=== PATIENT | female | born 1980 | race African-American/Black ===

== ENCOUNTER 2022-05-08 17:07 | Inpatient (IN) | payer OTHER ==
[~2022-05-08] VITALS: Ht 162.6 cm; Wt 83.9 kg
--- NOTE | 2022-05-08 17:32 | NUR ---
Pt arrived with c/o excessive than normal vaginal bleeding, blood clots, low abdominal and low back pain present, rated 5-6/10, characterized as aching/cramping, started since Tuesday (05-05-22). Pt stated that she has hx of Anemia and HTN but does not medicate HTN. Seen by Dr. Barrios for MSE.
[2022-05-08 17:42] LABS: *BILIRUBIN,URIN NEGATIVE (NEGATIVE); *BLOOD, URINE 2+ (NEGATIVE); *CLARITY,URINE CLEAR (CLEAR); *COLOR,URINE YELLOW (YELLOW); *KETONES,URINE NEGATIVE (NEGATIVE); *UROBILINOGEN,URINE 0.2 E.U./dl (NORMAL); LEUKOCYTE ESTERASE ,URINE NEGATIVE (NEGATIVE); NITRITE, URINE NEGATIVE (NEGATIVE); UGLUCOSE NEGATIVE (NEGATIVE)
[2022-05-08 17:49] LABS: *URINE HCG, QUAL NEG (NEGATIVE)
[2022-05-08 18:04] LABS: MEAN CORPUSCULAR HEMOGLOBIN 22.6 uug (24.7-32.8); MEAN CORPUSCULAR VOLUME 70.7 fL (75.5-95.3); PLATELET COUNT (AUTO) 355 K/uL (179-408)
[2022-05-08 18:17] LABS: HEMATOCRIT 20.9 % (31.2-41.9)
--- NOTE | 2022-05-08 18:20 | NUR ---
Received lab report: Hgb = 6.7 and Hct = 20.9 MD made aware.
[2022-05-08 18:23] LABS: CREATININE 0.8 mg/dL (0.6-1.3)
--- NOTE | 2022-05-08 18:25 | NUR ---
Contacted Dr. Lina Turcios (phone #[phone]) - Gyne per 's request.
[2022-05-08] MEDS ORDERED: medroxyPROGESTERone ACET 5 MG TABLET PO SCH (18:30)
[2022-05-08 18:31] LABS: POTASSIUM 2.8 mmol/L (3.5-5.1)
--- NOTE | 2022-05-08 18:34 | NUR ---
Lab called and stated that blood product/s will arrive at 2200. made aware.
[2022-05-08] MEDS ORDERED: POTASSIUM BICARBONATE/CIT AC 25 MEQ TABLET.EFF ONE (18:45)
[2022-05-08] MEDS ORDERED: POTASSIUM BICARBONATE/CIT AC 25 MEQ TABLET.EFF PO ONE (18:45)
[2022-05-08] MEDS ORDERED: CHOLECALCIFEROL 1,000 UNIT TABLET ONE (18:45)
[2022-05-08] MEDS: CHOLECALCIFEROL 1,000 UNIT TABLET PO SCH (18:47)
--- NOTE | 2022-05-08 19:00 | NUR ---
Blood Transfusion consent form signed.
--- NOTE | 2022-05-08 19:10 | NUR ---
Pt will be admitted under the medical care of Dr. Card, level of care = telemetry, admission dx of vaginal bleeding and anemia. Room number to follow.
--- NOTE | 2022-05-08 19:13 | NUR ---
Endorsed to Radhika Morse RN.
--- NOTE | 2022-05-08 19:33 | NUR ---
Note [email or web address] in EDM - 05/08/22 at 1939 by CUONG Patient sitting up in bed with family member at bedside, updated on plan of care at this time. patient made aware she will be admitted to the hospital, awaiting room assignment and will be getting a blood transfussion when blood becomes available. Patient remains a/o x4, no s/s of any distress noted, denies any pain or discomfort at this time. #20g established in right wrist area, placed on monitor and will continue to monitor, side rail up.
--- NOTE | 2022-05-08 19:39 | NUR ---
Patient sitting up in bed with family member at bedside, updated on plan of care at this time. patient made aware she will be admitted to the hospital, awaiting room assignment and will be getting a blood transfusion when blood becomes available. Patient remains a/o x4, no s/s of any distress noted, denies any pain or discomfort at this time. #20g established in right wrist area, placed on monitor and will continue to monitor, side rail up.
[2022-05-08] MEDS ORDERED: MAGNESIUM SULFATE/D5W 100 ML IV SCH (19:45)
[2022-05-08 19:53] LABS: BACTERIA,URINE NONE SEEN /HPF (NONE SEEN); RBC,URINE 20-50 /HPF (0-3); SQUAMOUS EPITHELIAL CELL,UR FEW /HPF (NONE SEEN); WBC,URINE NONE SEEN /HPF (0-3)
--- NOTE | 2022-05-08 19:58 | NUR ---
ER MD at bedside talking with patient.
[2022-05-08] MEDS ORDERED: MAGNESIUM SULFATE/D5W 100 ML ONE (20:01)
[2022-05-08] MEDS ORDERED: MAGNESIUM SULFATE/D5W 200 ML ONE (20:07)
[2022-05-08 20:28] LABS: EOSINOPHILS % (MANUAL) 3 % (0-8); LYMPHOCYTES % (MANUAL) 23 % (20-40); MONOCYTES % (MANUAL) 7 % (2-10); NEUTROPHILS % (MANUAL) 67 % (42-75)
[2022-05-08] MEDS ORDERED: ONDANSETRON 4 MG/2 ML VIAL IV PRN (21:15)
[2022-05-08] MEDS ORDERED: HYDROCODONE/APAP 5-325MG TABLET PO PRN (21:15)
[2022-05-08] MEDS ORDERED: METOPROLOL TARTRATE 50 MG TABLET PO SCH (21:15)
--- NOTE | 2022-05-08 22:44 | NUR ---
Resting in bed family member remains at bedside, patient continues to await transfer to room. IVF infusing as per order.
--- NOTE | 2022-05-09 00:08 | NUR ---
blood infusing as per order, no s/s of reaction noted at this time, patient resting remains easy to arouse, will continue to monitor.
--- NOTE | 2022-05-09 00:28 | NUR ---
report was given to Ehsan, patient remains stable for transport.
--- NOTE | 2022-05-09 01:05 | NUR ---
Resting in bed, blood infusing well, no voiced c/o at this time.
--- NOTE | 2022-05-09 01:40 | NUR ---
Admitted patient in med surg floor under the care of Dr russo, patient alert oriented, complain of headaches, will medicate as ordered. Ambulatory continent of bladder, oriented to the room and call lights, cont to monitor.
[2022-05-09 02:00] VITALS: BP 158/84
[2022-05-09] MEDS: ACETAMINOPHEN 325 MG TABLET PO PRN ×2 (02:28→21:34)
--- NOTE | 2022-05-09 02:28 | NUR ---
Patient complain of headaches, request tylenol for headaches, noted with slightly elevated bp will rechek again, cont to monitor.
[2022-05-09 04:00] VITALS: BP 141/73
[2022-05-09 06:28] LABS: HEMATOCRIT 24.2 % (31.2-41.9); MEAN CORPUSCULAR HEMOGLOBIN 23.5 uug (24.7-32.8); PLATELET COUNT (AUTO) 311 K/uL (179-408)
[2022-05-09 06:30] VITALS: BP 141/75
--- NOTE | 2022-05-09 06:36 | NUR ---
Patient asleep but arousable, no further complain of headaches, no further vaginal bleeding noted, BP wnl now, cont to monitor.
[2022-05-09 06:51] LABS: BILIRUBIN,TOTAL 0.1 mg/dL (0.2-1.0); CREATININE 0.7 mg/dL (0.6-1.3); PHOSPHOROUS 3.1 mg/dL (2.5-4.9); THYROID STIMULATING HORMONE 4.144 mIU/mL (0.358-3.740); TOTAL PROTEIN, SERUM 5.8 g/dL (6.4-8.2)
[2022-05-09] MEDS: PANTOPRAZOLE SODIUM 40 MG TABLET.DR PO SCH (06:51)
[2022-05-09 06:54] LABS: POTASSIUM 2.8 mmol/L (3.5-5.1)
[2022-05-09] MEDS: medroxyPROGESTERone ACET 5 MG TABLET PO SCH (08:50)
[2022-05-09] MEDS: CHOLECALCIFEROL 1,000 UNIT TABLET PO SCH (08:50)
[2022-05-09] MEDS: METOPROLOL TARTRATE 25 MG TABLET PO SCH ×2 (08:52→21:34)
[2022-05-09 11:35] VITALS: BP 148/86
[2022-05-09] MEDS ORDERED: POTASSIUM CHLORIDE 50 ML IV SCH (14:00)
--- NOTE | 2022-05-09 14:00 | NUR ---
POTASSIUM IN PROGRESS ORDERED AND AT ABOUT [address] WAY PATIENT C/O HAVING TOO MUCH PAIN AND IS UNABLE TO CONTINUE WITH THE REST OF THE INFUSSION SO POTASSIUM STOPPED AND PHARMACY NOTIFIED AND PER MORGAN WILL ADD LIDOCAINE INTO THE MIX TO PREVENT THE PAIN.
[2022-05-09] MEDS ORDERED: POTASSIUM CHLORIDE 10 MEQ, LIDOCAINE-MPF 1% 1 ML in IV DEXTROSE 5% 100 ML IV SCH (15:00)
[2022-05-09] MEDS: POTASSIUM CHLORIDE 10 MEQ, LIDOCAINE 1% 1 ML in IV DEXTROSE 5% 100 ML IV SCH ×4 (16:33→23:38)
[2022-05-09 16:49] VITALS: BP 163/85
--- NOTE | 2022-05-09 17:30 | NUR ---
SO FAR PATIENT HAS RECEIVED 2 BAGS OF THE POTASSIUM AND ATTEMPTING TO CONTINUE TO INFUSSION BUT PATIENT STATED WILL PREFER TO TAKE A BREAK BEFORE CONTINUING WILL WAIT FOR WHEN SHE IS READY.WILL CONTINUE TO OBSERVE.
[2022-05-09 20:00] VITALS: BP 135/72
--- NOTE | 2022-05-09 21:36 | NUR ---
Patient was educated and agreed to continue rest of Potassium bags ordered at this time. Provided non-pharmacological interventions for prevention of pain. Is in no distress. Safety and comfort measures continue to be enforced.
[2022-05-10] MEDS: POTASSIUM CHLORIDE 10 MEQ, LIDOCAINE 1% 1 ML in IV DEXTROSE 5% 100 ML IV SCH (00:38)
--- NOTE | 2022-05-10 01:35 | NUR ---
Patient completed potassium bag ordered infusion at this time. No adverse reactions noted. Was able to tolerate medication. In no signs of distress.
[2022-05-10 04:00] VITALS: BP 157/74
[2022-05-10] MEDS: PANTOPRAZOLE SODIUM 40 MG TABLET.DR PO SCH (06:30)
--- NOTE | 2022-05-10 06:49 | NUR ---
Pateint slept intermittently throughout the night. No c/o pain or signs of distress. Safety and comfort measures maintained.
--- NOTE | 2022-05-10 07:15 | NUR ---
RECEIVED PATIENT IN BED ASLEEP EASILY AROUSABLE ON ROUNDS ALERT AND ORIENTED WHEN AWAKE DENIES PAIN OR DISCOMFORTS AT THIS TIME DENIES VAGINAL BLEEDING CALL LIGHTS AND PERSONAL BELONGINGS ARE WITHIN EASY REACH AT THIS TIME WILL CONTINUE TO OBSERVE.
[2022-05-10 08:25] LABS: CARBON DIOXIDE 28 mmol/L (21-32); CHLORIDE 107 mmol/L (98-107); CREATININE 0.6 mg/dL (0.6-1.3); GLUCOSE 93 mg/dL (74-106); POTASSIUM 3.4 mmol/L (3.5-5.1); UREA NITROGEN, BLOOD 10 mg/dL (7-18)
[2022-05-10] MEDS: CHOLECALCIFEROL 1,000 UNIT TABLET PO SCH (08:50)
[2022-05-10] MEDS: METOPROLOL TARTRATE 25 MG TABLET PO SCH (08:51)
[2022-05-10] MEDS: medroxyPROGESTERone ACET 5 MG TABLET PO SCH (08:51)
--- NOTE | 2022-05-10 10:40 | NUR ---
POTASSIUM LEVEL IS 3.4 WITH ORDER TO REPLACE WITH 20 MEQ POTASSIUM TODAY AND NOTED
[2022-05-10] MEDS ORDERED: POTASSIUM CHLORIDE 20 MEQ TAB.PRT.SR PO ONE (11:00)
[2022-05-10 11:31] VITALS: BP 139/76
[2022-05-10] MEDS ORDERED: METO25TA6 PO (12:25)
[2022-05-10] MEDS ORDERED: MEDR5TAB5 PO (12:25)
[2022-05-10] MEDS ORDERED: CHOL100062 PO (12:25)
[2022-05-10] MEDS ORDERED: FERR325T23 PO (12:28)
--- NOTE | 2022-05-10 13:16 | NUR ---
D/C PLANNING ORDERS NOTED TO DISCHARGE PATIENT HOME TODAY WILL START THE DISCHARGE PAPERWORK.
--- NOTE | 2022-05-10 14:10 | NUR ---
PATIENT DISCHARGED PICKED UP BY HER SIGNIFICANT OTHER [facility] IN SATISFACTORY CONDITION WITH DISCHARGE INSTRUCTIONS AND ALL HER DISCHARGE MEDICATIONS SENT ELECTRONICALLY PATIENT INSTRUCTED TO FOLLOW UP WITH HER OBGYN AN OUT PATIENT AND SHE EXPRESSED UNDERSTANDING DENIES BLEEDING AT THIS TIME.
== END 2022-05-10 14:12 | disposition home or self-care (01) | DRG 760 ==
LOC: EDBD 17:07 → ER 17:07 → TELE3 20:10 → MEDSURG3 05-09 07:28
PROVIDERS: ADMIT Nurse Practitioner Acute Care; ATTEND Nurse Practitioner Acute Care
PROC: 30233N1 Transfusion of Nonautologous Red Blood Cells into Peripheral Vein, Percutaneous Approach (ICD-10-PCS; principal; 2022-05-08)
DX: D25.9 Leiomyoma of uterus, unspecified (principal); D62 Acute posthemorrhagic anemia; E44.0 Moderate protein-calorie malnutrition; N93.9 Abnormal uterine and vaginal bleeding, unspecified; E87.6 Hypokalemia; D50.9 Iron deficiency anemia, unspecified; E03.9 Hypothyroidism, unspecified; E83.42 Hypomagnesemia; E88.09 Other disorders of plasma-protein metabolism, not elsewhere classified; I10 Essential (primary) hypertension; Z98.51 Tubal ligation status; Z20.822 Contact with and (suspected) exposure to COVID-19; Z68.31 Body mass index [BMI] 31.0-31.9, adult
CPT/HCPCS: 36415; 70030-TC; 76856; 83735; 84100; 84443; 84703; 85025; 85730; 86850; 86900; 86901; 86920; A4663; G0378; J2001; J3475; J3480; P9016